=== PATIENT | female | born 1980 | race African-American/Black ===

== ENCOUNTER 2018-03-08 17:50 | Emergency (ER) | payer OTHER ==
[~2018-03-08] VITALS: Ht 170.2 cm; Wt 117.9 kg
[2018-03-08 18:07] VITALS: BP 146/103
--- NOTE | 2018-03-08 18:18 | NUR ---
PT. CAME INTO THE ED DUE TO BURRELL X 2DAYS AND NAUSEA. PT. STATES " I HAVE BEEN HAVING A BURRELL FOR 2 DAYS AND HAVE BEEN NAUSEOUS I VOMITED ONCE TODAY". PT. IS AAOX4, RR EVEN AND UNLABORED, DENIES CHEST PAIN, DENIES SOB, DENIES DIAHRRHEA AT THIS TIME. PT. DOES HAVE NAUSEA AND ALSO VOMITING ONCE TODAY. ABD ROUND AND SOFT. PT. DENIES ANY VISUAL DISTURBANCES, STATES THAT "I AM DIZZY WHEN I GET UP. ER MD NOTIFIED. WILL CONTINUE TO MONITOR.
--- NOTE | 2018-03-08 19:15 | NUR ---
Pt report given to DIDI DEE . Transfer of care at this time.
--- NOTE | 2018-03-08 19:16 | NUR ---
PT LAYING IN BED, NO NEW NEEDS AT THIS TIME.
--- NOTE | 2018-03-08 20:44 | NUR ---
PT REQUEST PAIN MEDICATION, ER MADE AWARE, TO SEE PT.
[2018-03-08] MEDS ORDERED: diphenhydrAMINE 50 MG/ML VIAL IM ONE (21:10)
[2018-03-08] MEDS ORDERED: cloNIDine 0.1 MG TAB PO ONE (21:10)
[2018-03-08] MEDS ORDERED: METOCLOPRAMIDE 10 MG/2 ML INJ VIAL IM ONE (21:10)
[2018-03-08 21:34] LABS: BASOPHILS # (AUTO) 0.1 K/uL (0.00-0.22); BASOPHILS % (AUTO) 0.7 % (0.0-2.0); EOSINOPHILS # (AUTO) 0.1 K/uL (0-0.4); EOSINOPHILS % (AUTO) 1.3 % (0.0-4.0); HEMATOCRIT 33.3 % (36-48); HEMOGLOBIN 10.9 g/dL (12.0-16.0); LYMPHOCYTES # (AUTO) 3.7 K/uL (2.5-16.5); MEAN CORPUSCULAR HEMOGLOBIN 30 pg (27-31); MEAN CORPUSCULAR HGB CONC 33 g/dL (33-37); MEAN CORPUSCULAR VOLUME 91.6 fL (80-94); MONOCYTES # (AUTO) 0.5 K/uL (0.8-1.0); MONOCYTES % (AUTO) 4.8 % (1.7-9.3); NEUTROPHILS # (AUTO) 5.3 K/uL (1.8-7.7); NEUTROPHILS % (AUTO) 55.2 % (42.2-75.2); PLATELET COUNT (AUTO) 260 K/uL (140-450); RED BLOOD CELL COUNT(AUTO) 3.64 MIL/uL (4.20-5.40); RED CELL DISTRIBUTION WIDTH 13.1 % (11.6-13.7); WHITE BLOOD COUNT (AUTO) 9.7 K/uL (4.8-10.8)
--- NOTE | 2018-03-08 21:45 | NUR ---
PT SITTING IN BED, TALKING ON PHONE.
[2018-03-08 21:52] LABS: CARBON DIOXIDE 27.4 mmol/L (21-32); CREATININE 0.8 mg/dL (0.6-1.3); POTASSIUM 3.4 mmol/L (3.5-5.1)
[2018-03-08 21:59] LABS: ALBUMIN 3.3 g/dL (3.4-5.0); TOTAL BILIRUBIN 0.2 mg/dL (0.0-1.0)
--- NOTE | 2018-03-08 22:04 | NUR ---
INGRID CHAMPAGNE AT BEDSIDE.
[2018-03-08 23:35] VITALS: BP 119/75
--- NOTE | 2018-03-08 23:35 | NUR ---
Patient discharged with v/s stable. Written and verbal after care instructions given and explained. Patient alert, oriented and verbalized understanding of instructions. Ambulatory with steady gait. All questions addressed prior to discharge. ID band removed. Patient advised to follow up with PMD. Rx of Lisinopril given. Patient educated on indication of medication including possible reaction and side effects. Opportunity to ask questions provided and answered.
== END 2018-03-08 23:35 | disposition home or self-care (01) ==
LOC: MED 17:50
DX: G44.209 Tension-type headache, unspecified, not intractable (principal); I10 Essential (primary) hypertension; F41.9 Anxiety disorder, unspecified; F17.210 Nicotine dependence, cigarettes, uncomplicated
CPT/HCPCS: 36415; 70450; 80053; 81025; 85025; 85651; 96372; 99285; J1200; J2765

== ENCOUNTER 2018-04-29 10:55 | Emergency (ER) | payer OTHER ==
[~2018-04-29] VITALS: Ht 167.6 cm; Wt 105.2 kg
[2018-04-29 11:07] VITALS: BP 142/88
--- NOTE | 2018-04-29 11:12 | NUR ---
patient to rm 11 with steady gait. gave report to Kalen TOLBERT.
--- NOTE | 2018-04-29 11:15 | NUR ---
PATIENT PRESENTS TO ED WITH COMPLAINTS OF COUGH AND COLD SYMPTOMS X 2 DAYS. DENIES N/V/D; SKIN IS PINK/WARM/DRY; AAOX4 WITH EVEN AND STEADY GAIT; LUNGS CLEAR BL; HR EVEN AND REGULAR; PT DENIES ANY FEVER, CP, SOB, OR COUGH AT THIS TIME; PATIENT STATES PAIN OF 0/10 AT THIS TIME; VSS; PATIENT POSITIONED FOR COMFORT; HOB ELEVATED; BEDRAILS UP X1; BED DOWN. ER MD MADE AWARE OF PT STATUS.
[2018-04-29 11:30] VITALS: BP 142/88
--- NOTE | 2018-04-29 11:30 | NUR ---
Patient discharged with v/s stable. Written and verbal after care instructions given and explained. Patient alert, oriented and verbalized understanding of instructions. Ambulatory with steady gait. All questions addressed prior to discharge. ID band removed. Patient advised to follow up with PMD. Rx of ERICH MICHELLE given. Patient educated on indication of medication including possible reaction and side effects. Opportunity to ask questions provided and answered.
== END 2018-04-29 11:30 | disposition home or self-care (01) ==
LOC: MED 10:55
DX: J06.9 Acute upper respiratory infection, unspecified (principal); I10 Essential (primary) hypertension; F17.210 Nicotine dependence, cigarettes, uncomplicated
CPT/HCPCS: 99283

== ENCOUNTER 2018-07-04 00:52 | Emergency (ER) | payer OTHER ==
[~2018-07-04] VITALS: Ht 170.2 cm; Wt 128.8 kg
[2018-07-04 00:55] VITALS: BP 169/108
[2018-07-04] MEDS ORDERED: KETOROLAC 30 MG/ML VIAL IM ONE (01:40)
[2018-07-04] MEDS ORDERED: DICYCLOMINE HCL LIQUID 20 MG, ALUMINUM HYD/MAG/SIMETHICONE 30 ML, LIDOCAINE VISCOUS 2% ... PO ONE ×3 (01:40)
[2018-07-04 02:47] LABS: ANION GAP 8.3 (8-16); CARBON DIOXIDE 29.5 mmol/L (21-32); CREATININE 0.8 mg/dL (0.6-1.3); POTASSIUM 3.8 mmol/L (3.5-5.1)
[2018-07-04 02:53] LABS: ALBUMIN 3.2 g/dL (3.4-5.0); TOTAL BILIRUBIN 0.1 mg/dL (0.0-1.0)
[2018-07-04 03:40] VITALS: BP 147/86
== END 2018-07-04 03:40 | disposition home or self-care (01) ==
LOC: MED 00:52
DX: R07.89 Other chest pain (principal); I10 Essential (primary) hypertension
CPT/HCPCS: 36415; 71045; 80053; 81002; 81025; 83690; 84484; 93005; 96372; 99285; J1885; Q0092

== ENCOUNTER 2018-11-14 22:10 | Emergency (ER) | payer OTHER ==
[~2018-11-14] VITALS: Ht 170.2 cm; Wt 117.9 kg
[2018-11-14 22:14] VITALS: BP 144/94
--- NOTE | 2018-11-14 22:32 | NUR ---
PT AMBULATED TO THE RESTROOM AND THEN TO BED #6, GAVE RN REPORT
--- NOTE | 2018-11-14 22:44 | NUR ---
PT BIB SELF C/O CHEST PAIN X3 HOURS. PT STATES SHARP/STABING L CHEST PAIN AT 7/10, PT DENIES RADIATING PAIN AT THIS TIME BUT REPORTS SHOOTING PAIN BEHIND L EAR WHEN CP FIRST STARTED. PT DENIES SOB AT THIS TIME BUT REPORTS SOB WHEN CP FIRST STARTED. HEART RRR, CAP REFIL <3 SEC, RADIAL PULSES EQUAL 2+. RR SYMMETRICAL, NON-LABORED, BREATH SOUNDS CLEAR THROUGHOUT. VSS. ER MD TO SEE PT. WILL CONTINUE TO MONITOR. MEDHX: ANXIETY
--- NOTE | 2018-11-14 22:45 | NUR ---
X RAY AT BEDSIDE AT THIS TIME
[2018-11-14] MEDS ORDERED: KETOROLAC 60 MG/2 ML VIAL IM ONE (23:40)
[2018-11-15 00:06] VITALS: BP 113/63
--- NOTE | 2018-11-15 00:06 | NUR ---
Patient discharged with v/s stable. Written and verbal after care instructions given and explained. Patient alert, oriented and verbalized understanding of instructions. Ambulatory with steady gait. All questions addressed prior to discharge. ID band removed. Patient advised to follow up with PMD. Rx of MOTRIN WAS given. Patient educated on indication of medication including possible reaction and side effects. Opportunity to ask questions provided and answered.
== END 2018-11-15 00:06 | disposition home or self-care (01) ==
LOC: MED 22:10
DX: R07.89 Other chest pain (principal); R06.02 Shortness of breath; R00.2 Palpitations; I10 Essential (primary) hypertension
CPT/HCPCS: 71045; 93005; 96372; 99283; J1885; Q0092

== ENCOUNTER 2019-01-06 22:51 | Emergency (ER) | payer OTHER ==
[~2019-01-06] VITALS: Ht 170.2 cm; Wt 127.0 kg
[2019-01-06 22:54] VITALS: BP 134/90
--- NOTE | 2019-01-06 22:54 | NUR ---
TO BED # 03 AMBULATORY
[2019-01-06] MEDS ORDERED: KETOROLAC 30 MG/ML VIAL IM ONE (23:05)
--- NOTE | 2019-01-06 23:13 | NUR ---
38 y/o F presented to ED with c/o SOB and chest pain. Per pt, "i cannot sleep and i feel like im gasping for air." /10 sharp and intermintent pain. bilateral lung fan clear. O2 saturation is 100% on room air. bed in lowest postion. Will continue to monitor.
[2019-01-06 23:27] LABS: BASOPHILS % (AUTO) 0.5 % (0.0-2.0); EOSINOPHILS # (AUTO) 0.1 K/uL (0-0.4); EOSINOPHILS % (AUTO) 1.4 % (0.0-4.0); HEMATOCRIT 31.6 % (36-48); HEMOGLOBIN 10.5 g/dL (12.0-16.0); LYMPHOCYTES % (AUTO) 36.3 % (20.5-51.1); MEAN CORPUSCULAR HEMOGLOBIN 30 pg (27-31); MEAN CORPUSCULAR HGB CONC 33 g/dL (33-37); MEAN CORPUSCULAR VOLUME 90.4 fL (80-94); MONOCYTES # (AUTO) 0.5 K/uL (0.8-1.0); MONOCYTES % (AUTO) 5.6 % (1.7-9.3); NEUTROPHILS # (AUTO) 4.6 K/uL (1.8-7.7); NEUTROPHILS % (AUTO) 56.2 % (42.2-75.2); PLATELET COUNT (AUTO) 277 K/uL (140-450); RED BLOOD CELL COUNT(AUTO) 3.49 MIL/uL (4.20-5.40); WHITE BLOOD COUNT (AUTO) 8.2 K/uL (4.8-10.8)
[2019-01-06 23:36] LABS: ANION GAP 7.7 (8-16); CARBON DIOXIDE 28.9 mmol/L (21-32); CREATININE 0.8 mg/dL (0.6-1.3); POTASSIUM 3.6 mmol/L (3.5-5.1)
[2019-01-06 23:41] LABS: ALBUMIN 2.9 g/dL (3.4-5.0); TOTAL BILIRUBIN 0.2 mg/dL (0.0-1.0)
--- NOTE | 2019-01-07 00:11 | NUR ---
Patient discharged with v/s stable. Written and verbal after care instructions given and explained. Patient verbalized understanding. Ambulatory with steady gait. All questions addressed prior to discharge. Advised to follow up with PMD.
== END 2019-01-07 00:11 | disposition home or self-care (01) ==
LOC: MED 22:51
DX: R07.9 Chest pain, unspecified (principal); D64.9 Anemia, unspecified; F41.9 Anxiety disorder, unspecified; I10 Essential (primary) hypertension; F17.210 Nicotine dependence, cigarettes, uncomplicated; K21.9 Gastro-esophageal reflux disease without esophagitis
CPT/HCPCS: 36415; 71045; 80053; 85025; 85379; 93005; 96372; 99284; J1885

== ENCOUNTER 2019-05-18 20:42 | Emergency (ER) | payer OTHER ==
[~2019-05-18] VITALS: Ht 170.2 cm; Wt 125.4 kg
[2019-05-18 20:46] VITALS: BP 152/113
--- NOTE | 2019-05-18 20:55 | NUR ---
TRIAGE COMPLETE. OKAY TO WAIT IN LOBBY PER ER MD.
[2019-05-18 21:44] LABS: BASOPHILS # (AUTO) 0.1 K/uL (0.00-0.22); BASOPHILS % (AUTO) 0.7 % (0.0-2.0); EOSINOPHILS # (AUTO) 0.2 K/uL (0-0.4); EOSINOPHILS % (AUTO) 2.1 % (0.0-4.0); HEMATOCRIT 32.9 % (36-48); LYMPHOCYTES # (AUTO) 2.6 K/uL (2.5-16.5); LYMPHOCYTES % (AUTO) 33.5 % (20.5-51.1); MEAN CORPUSCULAR HEMOGLOBIN 30 pg (27-31); MEAN CORPUSCULAR HGB CONC 33 g/dL (33-37); MEAN CORPUSCULAR VOLUME 90.7 fL (80-94); MONOCYTES # (AUTO) 0.3 K/uL (0.8-1.0); MONOCYTES % (AUTO) 3.6 % (1.7-9.3); NEUTROPHILS # (AUTO) 4.7 K/uL (1.8-7.7); NEUTROPHILS % (AUTO) 60.1 % (42.2-75.2); PLATELET COUNT (AUTO) 289 K/uL (140-450); RED BLOOD CELL COUNT(AUTO) 3.63 MIL/uL (4.20-5.40); RED CELL DISTRIBUTION WIDTH 13.3 % (11.6-13.7); WHITE BLOOD COUNT (AUTO) 7.9 K/uL (4.8-10.8)
[2019-05-18 21:46] LABS: ANION GAP 10.6 (8-16); CARBON DIOXIDE 29.2 mmol/L (21-32); CREATININE 0.8 mg/dL (0.6-1.3); POTASSIUM 3.8 mmol/L (3.5-5.1)
[2019-05-18 21:51] LABS: ALBUMIN 3.4 g/dL (3.4-5.0); TOTAL BILIRUBIN 0.3 mg/dL (0.0-1.0)
--- NOTE | 2019-05-18 22:20 | NUR ---
PT TO ER BED 10 , AMBULATORY
--- NOTE | 2019-05-18 22:26 | NUR ---
38 Y/O FEMALE PRESENTS TO ED, C/O ABDOMINAL ACHING PAIN 05/20. PT STATES PAIN STARTED 3 DAYS AGO. HAD 1 EPISDOE OF DIARRHEA YESTERDAY. ABLE TO TOLERATE FOOD AND LIQUID. DENIES ANY N/V. ACTIVE BS ON ALL QUADRANTS. ABD IS SOFT AND TENDER, PAIN ON PALPATION ON LOWER QUADRANT. PT VSS. ERMD AWARE. WILL CONTINUE TO MONITOR.
[2019-05-18 22:27] LABS: APPEARANCE,URINE CLEAR (CLEAR); BILIRUBIN,URINE NEGATIVE (NEGATIVE); BLOOD, URINE NEGATIVE (NEGATIVE); COLOR,URINE YELLOW (YELLOW); LEUKOCYTE ESTERASE ,URINE NEGATIVE (NEGATIVE); NITRITE, URINE NEGATIVE (NEGATIVE); PH,URINE 5.5 (5.0-9.0); UGLUCOSE NEGATIVE (NEGATIVE)
[2019-05-19] MEDS ORDERED: NACL 0.9% 1,000 ML IV ONE (00:50)
[2019-05-19] MEDS ORDERED: KETOROLAC 15 MG/ML VIAL IVP ONE (00:50)
[2019-05-19] MEDS ORDERED: ALUMINUM HYD/MAG/SIMETHICONE 30 ML, DICYCLOMINE HCL LIQUID 20 MG, LIDOCAINE VISCOUS 2% ... PO ONE ×3 (00:50)
--- NOTE | 2019-05-19 03:02 | NUR ---
PT DISCHARGED WITH PAPERWORK. RX URI. EDUCATED PT REGARDING MEDICATION AND S/E. EDUCATED PT REGARDING D/C DIAGNOSIS AND INSTRUCTIONS. PT VERBALIZED UNDERSTANDING OF TEACHING. TOLD PT TO FOLLOW UP WITH PCP AND WHEN TO RETURN TO ED. PT VSS. ALL QUESTIONS ANSWERED.
[2019-05-19 03:03] VITALS: BP 143/99
== END 2019-05-19 03:02 | disposition home or self-care (01) ==
LOC: MED 20:42
DX: R10.84 Generalized abdominal pain (principal); R19.7 Diarrhea, unspecified; R07.9 Chest pain, unspecified; I10 Essential (primary) hypertension; Z98.890 Other specified postprocedural states; Z98.51 Tubal ligation status
CPT/HCPCS: 36415; 80053; 81003; 81025; 83690; 85025; 96361; 96374; 99283; J1885; J7030

== ENCOUNTER 2019-07-29 15:31 | Emergency (ER) | payer OTHER ==
[~2019-07-29] VITALS: Ht 170.2 cm; Wt 125.2 kg
[2019-07-29 15:42] VITALS: BP 146/111
--- NOTE | 2019-07-29 16:02 | NUR ---
Patient ambulated to bed 1 with family. RN evaluating patient at bedside.
--- NOTE | 2019-07-29 16:13 | NUR ---
PHYSICIANS RETAIL MANAGEMENT KEYHOLDER AT BEDSIDE.
--- NOTE | 2019-07-29 16:49 | NUR ---
PT PRESENTS TO THE ED WITH C/O N/V/D X 1 DAY. BOWEL SOUNDS ACTIVE IN ALL QUADRANTS. PT REPORTS LLQ ABD PAIN X 1 DAY. PT DENIES CP AND SOB AT THIS TIME. PT REPORTS A THROBBING HEADACHE AND RATES PAIN 9/10 AT THIS TIME. SKIN IS PINK, WARM, AND DRY. PT PRESENTS WITH A CLEAR SPEECH AND IS CONVERSING APPROPRIATELY. PT REPORTS NO CHANGE IN DIET. SON AT BEDSIDE. BP 133/91. PT POSITIONED FOR COMFORT. HOB ELEVATED, LIGHTS DIMMED. PHYSICIAN BILLET INSPECTOR TO SEE PT. MEREDITH HX: ANXIETY RX: DENIES
[2019-07-29] MEDS: ONDANSETRON 4 MG/2 ML VIAL IVP ONE (17:01)
[2019-07-29] MEDS: NACL 0.9% 1,000 ML IV ONE (17:01)
[2019-07-29 17:24] LABS: BASOPHILS % (AUTO) 0.4 % (0.0-2.0); EOSINOPHILS # (AUTO) 0.1 K/uL (0-0.4); EOSINOPHILS % (AUTO) 1.1 % (0.0-4.0); HEMATOCRIT 34.3 % (36-48); HEMOGLOBIN 11.2 g/dL (12.0-16.0); LYMPHOCYTES # (AUTO) 1.9 K/uL (2.5-16.5); LYMPHOCYTES % (AUTO) 26.8 % (20.5-51.1); MEAN CORPUSCULAR HEMOGLOBIN 30 pg (27-31); MEAN CORPUSCULAR HGB CONC 33 g/dL (33-37); MEAN CORPUSCULAR VOLUME 91.8 fL (80-94); MONOCYTES # (AUTO) 0.3 K/uL (0.8-1.0); MONOCYTES % (AUTO) 4.3 % (1.7-9.3); NEUTROPHILS # (AUTO) 4.8 K/uL (1.8-7.7); NEUTROPHILS % (AUTO) 67.4 % (42.2-75.2); PLATELET COUNT (AUTO) 252 K/uL (140-450); RED BLOOD CELL COUNT(AUTO) 3.74 MIL/uL (4.20-5.40); RED CELL DISTRIBUTION WIDTH 13.6 % (11.6-13.7); WHITE BLOOD COUNT (AUTO) 7.1 K/uL (4.8-10.8)
[2019-07-29] MEDS: KETOROLAC 30 MG/ML VIAL IVP ONE (17:26)
[2019-07-29 17:50] LABS: ANION GAP 13.4 (8-16); CARBON DIOXIDE 25.3 mmol/L (21-32); CREATININE 0.7 mg/dL (0.6-1.3); POTASSIUM 3.7 mmol/L (3.5-5.1)
[2019-07-29 18:03] LABS: ALBUMIN 3.2 g/dL (3.4-5.0); TOTAL BILIRUBIN 0.3 mg/dL (0.0-1.0)
--- NOTE | 2019-07-29 18:09 | NUR ---
Patient discharged with v/s stable. Written and verbal after care instructions given and explained. Patient alert, oriented and verbalized understanding of instructions. Ambulatory with steady gait. All questions addressed prior to discharge. ID band removed. Patient advised to follow up with PMD. Rx of IBUPROFEN AND ZOFRAN given. Patient educated on indication of medication including possible reaction and side effects. Opportunity to ask questions provided and answered.
[2019-07-29 18:10] VITALS: BP 133/91
[2019-07-29 18:15] LABS: APPEARANCE,URINE CLEAR (CLEAR); BILIRUBIN,URINE NEGATIVE (NEGATIVE); BLOOD, URINE NEGATIVE (NEGATIVE); COLOR,URINE YELLOW (YELLOW); LEUKOCYTE ESTERASE ,URINE NEGATIVE (NEGATIVE); NITRITE, URINE NEGATIVE (NEGATIVE); UGLUCOSE NEGATIVE (NEGATIVE)
== END 2019-07-29 18:09 | disposition home or self-care (01) ==
LOC: MED 15:31
DX: A08.4 Viral intestinal infection, unspecified (principal); R11.2 Nausea with vomiting, unspecified; I10 Essential (primary) hypertension; F17.210 Nicotine dependence, cigarettes, uncomplicated; Z98.890 Other specified postprocedural states; Z71.6 Tobacco abuse counseling
CPT/HCPCS: 36415; 80053; 81003; 81025; 85025; 96361; 96374; 96375; 99283; J1885; J2405; J7030

== ENCOUNTER 2019-10-18 18:42 | Emergency (ER) | payer OTHER ==
[~2019-10-18] VITALS: Ht 170.2 cm; Wt 108.9 kg
[2019-10-18 18:53] VITALS: BP 155/80
--- NOTE | 2019-10-18 19:14 | NUR ---
38 yo F C/O SORE THROAT, NON-PRODUCTIVE COUGH AND RUNNY NOSE X 4 DAYS. PT ALSO COMPLAINS OF 8/10 THROBBING H/A. ADVIL TAKEN AT 2PM, WHICH PROVIDED NO RELIEF. DENIES N/V/D. VSS. BREATH SOUNDS CLEAR ON ALL LUNG LEIGH. PT POSITIONED IN BED COMFORTABLY. ER MD MADE AWARE OF PT STATUS. NKA PMH: DM, ANXIETY MEDS: LISINOPRIL
--- NOTE | 2019-10-18 19:18 | NUR ---
Dr. Garcia examining patient.
[2019-10-18 21:05] VITALS: BP 155/80
--- NOTE | 2019-10-18 21:06 | NUR ---
Patient discharged with v/s stable. Written and verbal after care instructions given and explained. Patient alert, oriented and verbalized understanding of instructions. Ambulatory with steady gait. All questions addressed prior to discharge. ID band removed. Patient advised to follow up with PMD. Rx of GUAIATUSSIN, FLONASE given. Patient educated on indication of medication including possible reaction and side effects. Opportunity to ask questions provided and answered.
== END 2019-10-18 21:06 | disposition home or self-care (01) ==
LOC: MED 18:42
DX: J20.9 Acute bronchitis, unspecified (principal); F41.9 Anxiety disorder, unspecified; F17.210 Nicotine dependence, cigarettes, uncomplicated; I10 Essential (primary) hypertension; Z98.890 Other specified postprocedural states; Z71.6 Tobacco abuse counseling
CPT/HCPCS: 87804; 99283

== ENCOUNTER 2019-11-25 16:47 | Emergency (ER) | payer OTHER ==
[~2019-11-25] VITALS: Ht 170.2 cm; Wt 125.2 kg
--- NOTE | 2019-11-25 17:05 | NUR ---
Pt ambulated to lobby. Awaiting bed availability.
[2019-11-25 17:07] VITALS: BP 175/105
--- NOTE | 2019-11-25 17:20 | NUR ---
CALLED NAME IN LOBBY--NO ANSWER AT THIS TIME.
--- NOTE | 2019-11-25 17:25 | NUR ---
AMB TO BED 07 WITH STEADY GAIT
--- NOTE | 2019-11-25 17:31 | NUR ---
39/F C/O c/o aching pain in bilateral arms. Denies trauma or exertion. Pain level 7/10. Denies cold symptoms. Pt BP 175/105, noncompliant with meds. "my ears feel hot and my nose is breathing in hot air". Denies back pain, dizziness, blurry vision. States BURRELL x 2 days. Took Advil yesterday which relieved the BURRELL. HX- HTN, anxiety
--- NOTE | 2019-11-25 17:34 | NUR ---
Denies SOB, CP.
--- NOTE | 2019-11-25 18:24 | NUR ---
flu swab collected by Tegan TOLBERT
--- NOTE | 2019-11-25 19:14 | NUR ---
REPORT TO SHELLY TOLBERT. TRANSFER OF CARE AT THIS TIME.
--- NOTE | 2019-11-25 19:14 | NUR ---
RECIEVED REPORT FROM DIDI FRANCO AND ASSUMED CARE.
--- NOTE | 2019-11-25 19:21 | NUR ---
PA ADOLFO WITH PT
[2019-11-25 19:44] VITALS: BP 132/85
== END 2019-11-25 19:45 | disposition home or self-care (01) ==
LOC: MED 16:47
DX: H92.09 Otalgia, unspecified ear (principal); I10 Essential (primary) hypertension; Z91.14 Patient's other noncompliance with medication regimen
CPT/HCPCS: 87804; 99283

== ENCOUNTER 2019-12-21 00:07 | Emergency (ER) | payer OTHER ==
[~2019-12-21] VITALS: Ht 170.2 cm; Wt 126.1 kg
[2019-12-21 00:22] VITALS: BP 158/90
--- NOTE | 2019-12-21 00:25 | NUR ---
PT AMBULATED TO BED 6 WITH STEADY GAIT.
[2019-12-21] MEDS ORDERED: ALBUTEROL HFA MDI 90 MCG/ACTUATION 8 GM INH ONE (00:45)
--- NOTE | 2019-12-21 00:49 | NUR ---
XRAY AT BEDSIDE.
--- NOTE | 2019-12-21 01:10 | NUR ---
COVERING FOR PRIMARY RN -- RECEIVED A 39/F FROM TRIAGE FOR C/O SOB OVER THE LAST 3 DAYS. DENIES COUGH. PT REPORTS HISTORY OF SMOKING X 20 YEARS. NO APPARENT DISTRESS NOTED. NEGATIVE COVID SCREENING.
--- NOTE | 2019-12-21 01:25 | NUR ---
ERMD AT BEDSIDE
--- NOTE | 2019-12-21 01:30 | NUR ---
Patient discharged with v/s stable. Written and verbal after care instructions given and explained. Patient alert, oriented and verbalized understanding of instructions. Ambulatory with steady gait. All questions addressed prior to discharge. ID band removed. Patient advised to follow up with PMD. Rx of VENTOLIN given. Patient educated on indication of medication including possible reaction and side effects. Opportunity to ask questions provided and answered.
== END 2019-12-21 01:30 | disposition home or self-care (01) ==
LOC: MED 00:07
DX: J40 Bronchitis, not specified as acute or chronic (principal); I10 Essential (primary) hypertension
CPT/HCPCS: 71045; 99283; Q0092

== ENCOUNTER 2020-01-02 00:30 | Emergency (ER) | payer OTHER ==
[~2020-01-02] VITALS: Ht 170.2 cm; Wt 121.1 kg
[2020-01-02 00:38] VITALS: BP 124/81
--- NOTE | 2020-01-02 00:44 | NUR ---
PT AMBULATED TO ER BED 4
--- NOTE | 2020-01-02 00:46 | NUR ---
ERMD BEDSIDE EVALUATING PT
[2020-01-02] MEDS ORDERED: KETOROLAC 60 MG/2 ML VIAL IM ONE (00:50)
--- NOTE | 2020-01-02 00:51 | NUR ---
39 Y/O F PRESENTS TO ED C/O LT ARM NUMBNESS AND TINGLING X 2 HOURS AGO. PT STATES THAT SHE WAS SLEEPING PRIOR TO THE EVENT. BILATERAL RADIAL PULSES STRONG. CAP REFILL <3 SECONDS. PT DENIES ANY INJURY. PMH: ANXIETY, HTN NKA
--- NOTE | 2020-01-02 00:54 | NUR ---
COVERING PRIMARY RN FOR LUNCH RELIEF. MEDICATED ORDERED FOR PAIN. WILL REASSESS.
[2020-01-02 01:06] VITALS: BP 124/81
== END 2020-01-02 01:05 | disposition home or self-care (01) ==
LOC: MED 00:30
DX: M25.512 Pain in left shoulder (principal); I10 Essential (primary) hypertension
CPT/HCPCS: 96372; 99283; J1885

== ENCOUNTER 2020-04-16 19:16 | Emergency (ER) | payer OTHER ==
[~2020-04-16] VITALS: Ht 170.2 cm; Wt 122.5 kg
[2020-04-16 19:23] VITALS: BP 155/95
--- NOTE | 2020-04-16 19:27 | NUR ---
ambulated to bed 11 with steady gait.
[2020-04-16] MEDS ORDERED: LORazepam 1 MG TAB PO ONE (19:40)
--- NOTE | 2020-04-16 19:40 | NUR ---
39 Y/O F C/C CHEST PAIN, STERNUM AREA, NON RADIATING, 9/10 PAIN, PRESSURE SENSATION, PER PATIENT MOVING RIGHT SHOULDER EXACERBATES, NOTHING ALLEVIATES. PER PT X1 DAY. NKA. HX ANXIETY,HTN. RX LISINOPRIL. SIDE RAIL X1.
--- NOTE | 2020-04-16 19:50 | NUR ---
REPORT GIVEN TO MARIO TOLBERT FOR CONTINUITY OF CARE
--- NOTE | 2020-04-16 19:50 | NUR ---
LAB AT BEDSIDE
--- NOTE | 2020-04-16 19:53 | NUR ---
REPORT RECIEVED FROM REBEKAH TOLBERT. TRANSFER OF CARE AT THIS TIME.
--- NOTE | 2020-04-16 19:55 | NUR ---
PT PLACED ON SCIENTIFIC GLASS BLOWER. BED LOCKED AND IN LOWEST POSITION. EQUAL CHEST RISE AND FALL. ALL PT NEEDS MET AT THIS TIME.
[2020-04-16 20:01] LABS: BASOPHILS # (AUTO) 0.1 K/uL (0.00-0.22); BASOPHILS % (AUTO) 0.8 % (0.0-2.0); EOSINOPHILS # (AUTO) 0.2 K/uL (0-0.4); EOSINOPHILS % (AUTO) 2.2 % (0.0-4.0); HEMATOCRIT 33.8 % (36-48); LYMPHOCYTES # (AUTO) 3.5 K/uL (2.5-16.5); LYMPHOCYTES % (AUTO) 39.5 % (20.5-51.1); MEAN CORPUSCULAR HEMOGLOBIN 30 pg (27-31); MEAN CORPUSCULAR HGB CONC 32 g/dL (33-37); MEAN CORPUSCULAR VOLUME 93.2 fL (80-94); MONOCYTES # (AUTO) 0.4 K/uL (0.8-1.0); MONOCYTES % (AUTO) 4.9 % (1.7-9.3); NEUTROPHILS # (AUTO) 4.6 K/uL (1.8-7.7); NEUTROPHILS % (AUTO) 52.6 % (42.2-75.2); PLATELET COUNT (AUTO) 301 K/uL (140-450); RED BLOOD CELL COUNT(AUTO) 3.63 MIL/uL (4.20-5.40); RED CELL DISTRIBUTION WIDTH 12.9 % (11.6-13.7); WHITE BLOOD COUNT (AUTO) 8.8 K/uL (4.8-10.8)
--- NOTE | 2020-04-16 20:09 | NUR ---
RAD AT BEDSIDE
[2020-04-16 20:15] LABS: ALBUMIN 3.3 g/dL (3.4-5.0); ANION GAP 9.2 (8-16); CARBON DIOXIDE 32.2 mmol/L (21-32); CREATININE 0.8 mg/dL (0.6-1.3); POTASSIUM 3.4 mmol/L (3.5-5.1); TOTAL BILIRUBIN 0.2 mg/dL (0.0-1.0)
[2020-04-16 20:17] LABS: BARBITURATE, URINE NEGATIVE ng/ml (NEG <=200); BENZODIAZEPINE, URINE NEGATIVE ng/mL (NEG <=200); CANNABINOID, URINE NEGATIVE ng/mL (NEG <=50); COCAINE, URINE NEGATIVE ng/mL (NEG <=300); OPIATE, URINE NEGATIVE ng/mL (NEG <=2000); PHENCYCLIDINE SCREEN,URINE NEGATIVE ng/mL (NEG <=25)
[2020-04-16 20:27] LABS: CREATINE KINASE MB 0.6 ng/mL (0-3.6)
[2020-04-16] MEDS ORDERED: KETOROLAC 30 MG/ML VIAL IM ONE (21:00)
--- NOTE | 2020-04-16 21:59 | NUR ---
LAB AT BEDSIDE
--- NOTE | 2020-04-16 22:07 | NUR ---
PT RESTING IN BED. PT STATES HER 9/10 PAIN IS STILL UNRELIEVED. DENIES WANTING ANY MORE PAIN MEDICATION AT THIS TIME. SAFETY MEASURES AND DELIVERY DEPARTMENT SUPERVISOR IN PLACE.
--- NOTE | 2020-04-16 22:39 | NUR ---
REPEAT 12 LEAD EKG PERFORMED AT BEDSIDE
[2020-04-16 22:50] VITALS: BP 132/84
== END 2020-04-16 22:50 | disposition home or self-care (01) ==
LOC: MED 19:16
DX: R07.9 Chest pain, unspecified (principal); I10 Essential (primary) hypertension; K21.9 Gastro-esophageal reflux disease without esophagitis; Z98.890 Other specified postprocedural states
CPT/HCPCS: 36415; 71045; 80053; 80305; 82550; 82553; 84484; 85025; 93005; 96372; 99285; J1885

== ENCOUNTER 2020-09-09 19:30 | Emergency (ER) | payer OTHER ==
[~2020-09-09] VITALS: Ht 170.2 cm; Wt 115.2 kg
[2020-09-09 19:50] VITALS: BP 145/102
--- NOTE | 2020-09-09 21:42 | NUR ---
PATIENT READY FOR DISCHARGE. NO NURSING INTERVENTION REQUIRED.
[2020-09-09 21:45] VITALS: BP 138/87
== END 2020-09-09 21:52 | disposition home or self-care (01) ==
LOC: MED 19:30
DX: R06.02 Shortness of breath (principal); R00.0 Tachycardia, unspecified; K21.9 Gastro-esophageal reflux disease without esophagitis; I10 Essential (primary) hypertension
CPT/HCPCS: 71045; 99283

== ENCOUNTER 2020-10-21 16:50 | Emergency (ER) | payer OTHER ==
[~2020-10-21] VITALS: Ht 170.2 cm; Wt 127.0 kg
[2020-10-21 16:59] VITALS: BP 132/70
--- NOTE | 2020-10-21 17:08 | NUR ---
PATIENT AMBULATED TO BED 1.
--- NOTE | 2020-10-21 17:23 | NUR ---
@[id number] Received care of 39 y/o female pt coming from home c/o pressure like chest pain radiating to left arm & left upper back, numbness on left arm x 2 days. Pt has Hx of Htn, DM, GERD, Anxiety. Has NKA. Pt hooked to cardiac specialist, VS. csr technician notified for EKG. Awaiting bedside assessment by ER MD.
[2020-10-21 17:43] VITALS: BP 134/79
[2020-10-21] MEDS ORDERED: DICYCLOMINE HCL LIQUID 20 MG, ALUMINUM HYD/MAG/SIMETHICONE 30 ML, LIDOCAINE VISCOUS 2% ... PO ONE ×3 (17:50)
[2020-10-21] MEDS ORDERED: DICYCLOMINE HCL LIQUID 10 MG/5 ML UDC ONE (17:58)
[2020-10-21] MEDS ORDERED: ALUMINUM HYD/MAG/SIMETHICONE 30 ML UDC ONE (17:58)
[2020-10-21] MEDS ORDERED: LIDOCAINE VISCOUS 2% 20 ML UDC ONE (17:58)
[2020-10-21 18:30] LABS: BASOPHILS % (AUTO) 0.5 % (0.0-2.0); EOSINOPHILS # (AUTO) 0.1 K/uL (0-0.4); EOSINOPHILS % (AUTO) 1.4 % (0.0-4.0); HEMATOCRIT 31.7 % (36-48); HEMOGLOBIN 10.6 g/dL (12.0-16.0); LYMPHOCYTES # (AUTO) 2.8 K/uL (2.5-16.5); LYMPHOCYTES % (AUTO) 37.4 % (20.5-51.1); MEAN CORPUSCULAR HEMOGLOBIN 30 pg (27-31); MEAN CORPUSCULAR HGB CONC 33 g/dL (33-37); MONOCYTES # (AUTO) 0.5 K/uL (0.8-1.0); MONOCYTES % (AUTO) 6.5 % (1.7-9.3); NEUTROPHILS # (AUTO) 4.1 K/uL (1.8-7.7); NEUTROPHILS % (AUTO) 54.2 % (42.2-75.2); PLATELET COUNT (AUTO) 269 K/uL (140-450); RED BLOOD CELL COUNT(AUTO) 3.48 MIL/uL (4.20-5.40); WHITE BLOOD COUNT (AUTO) 7.5 K/uL (4.8-10.8)
[2020-10-21 18:50] LABS: ALBUMIN 3.2 g/dL (3.4-5.0); ANION GAP 9.7 (8-16); CARBON DIOXIDE 27.1 mmol/L (21-32); CREATININE 0.7 mg/dL (0.6-1.3); POTASSIUM 3.8 mmol/L (3.5-5.1); TOTAL BILIRUBIN 0.2 mg/dL (0.0-1.0)
--- NOTE | 2020-10-21 19:07 | NUR ---
hand off report given to Dayana Carrasquillo for continuation of nursing care
== END 2020-10-21 22:12 | disposition home or self-care (01) ==
LOC: MED 16:50
DX: R07.9 Chest pain, unspecified (principal); K21.9 Gastro-esophageal reflux disease without esophagitis; E11.9 Type 2 diabetes mellitus without complications; I10 Essential (primary) hypertension; F41.9 Anxiety disorder, unspecified; F17.210 Nicotine dependence, cigarettes, uncomplicated; Z71.6 Tobacco abuse counseling; Z79.899 Other long term (current) drug therapy
CPT/HCPCS: 36415; 71045; 80053; 81002; 81025; 83690; 83880; 84484; 85025; 85379; 93005; 99285

== ENCOUNTER 2021-02-07 14:55 | Emergency (ER) | payer OTHER ==
[~2021-02-07] VITALS: Ht 170.2 cm; Wt 129.3 kg
[2021-02-07 15:11] VITALS: BP 160/106
--- NOTE | 2021-02-07 15:28 | NUR ---
40 Y/O F BIB SELF FROM HOME, PATIENT PRESENTS TO ED WITH R FOOT PAIN SINCE YESTERDAY THAT IS NOW RADIATING UP R LOWER EXTREMITY. PT STATES SHE HAS A BUMP ON HER FOOT THAT HAS BEEN STARTING TO MAKE HER LEG FEEL NUMB. UPON INSEPCTION, PT HAS VISIBLE SWELLING ON R FOOT, PT STILL HAS SENSATION AND CAP REFILL <3. DENIES N/V/D; SKIN IS PINK/WARM/DRY; AAOX4 WITH EVEN AND STEADY GAIT; LUNGS CLEAR BL; HR EVEN AND REGULAR; PT DENIES ANY FEVER, CP, SOB, OR COUGH AT THIS TIME; PATIENT STATES PAIN OF 8/10 AT THIS TIME; VSS; PATIENT POSITIONED FOR COMFORT; HOB ELEVATED; BEDRAILS UP X2; BED DOWN. ER MD MADE AWARE OF PT STATUS. PMH: HTN NKA
[2021-02-07] MEDS ORDERED: IBUPROFEN 600 MG TAB PO ONE (15:45)
[2021-02-07] MEDS ORDERED: IBUP-2213 PO (16:48)
--- NOTE | 2021-02-07 16:55 | NUR ---
PT RIGHT FOOT WRAPED WITH 4" LIS WRAP
[2021-02-07 17:03] VITALS: BP 158/99
== END 2021-02-07 17:03 | disposition home or self-care (01) ==
LOC: MED 14:55
DX: S90.31XA Contusion of right foot, initial encounter (principal); I10 Essential (primary) hypertension; X58.XXXA Exposure to other specified factors, initial encounter; Y93.89 Activity, other specified; Y92.89 Other specified places as the place of occurrence of the external cause; Y99.8 Other external cause status
CPT/HCPCS: 73630; 99283

== ENCOUNTER 2021-05-09 22:34 | Emergency (ER) | payer OTHER ==
[~2021-05-09] VITALS: Ht 172.7 cm; Wt 126.1 kg
[~2021-05-09 22:34] MED LIST: IBUP-2213 PO
[2021-05-09 22:54] VITALS: BP 160/102
[2021-05-10] MEDS ORDERED: PROCHLORPERAZINE 10 MG/2 ML VIAL IM ONE (00:55)
[2021-05-10] MEDS ORDERED: KETOROLAC 60 MG/2 ML VIAL IM ONE (00:55)
--- NOTE | 2021-05-10 01:01 | NUR ---
PT AMBULATED TO BED 05
[2021-05-10 01:13] LABS: BASOPHILS % (AUTO) 0.3 % (0.0-2.0); EOSINOPHILS # (AUTO) 0.1 K/uL (0-0.4); EOSINOPHILS % (AUTO) 1.7 % (0.0-4.0); HEMATOCRIT 35.3 % (36-48); HEMOGLOBIN 11.6 g/dL (12.0-16.0); LYMPHOCYTES # (AUTO) 2.9 K/uL (2.5-16.5); LYMPHOCYTES % (AUTO) 34.3 % (20.5-51.1); MEAN CORPUSCULAR HEMOGLOBIN 31 pg (27-31); MEAN CORPUSCULAR HGB CONC 33 g/dL (33-37); MEAN CORPUSCULAR VOLUME 93.7 fL (80-94); MONOCYTES # (AUTO) 0.4 K/uL (0.8-1.0); MONOCYTES % (AUTO) 4.9 % (1.7-9.3); NEUTROPHILS # (AUTO) 4.9 K/uL (1.8-7.7); NEUTROPHILS % (AUTO) 58.8 % (42.2-75.2); PLATELET COUNT (AUTO) 300 K/uL (140-450); RED BLOOD CELL COUNT(AUTO) 3.76 MIL/uL (4.20-5.40); RED CELL DISTRIBUTION WIDTH 13.6 % (11.6-13.7); WHITE BLOOD COUNT (AUTO) 8.4 K/uL (4.8-10.8)
--- NOTE | 2021-05-10 01:15 | NUR ---
40 YO/F BIBS W C/O TEMPORAL/FRONTAL HEADACHE 06/19 NON-RADIATING X1 WEEK WORSENING TODAY S/P RECEIVING 1ST DOSE OF COVID VACCINE. PATIENT REPORTS TAKING TYLENOL AND MOTRIN YESTERDAY W/O RELIEF OF PAIN. PATIENT DENIES N/V/D, BLURRY VISION, DIZZYNESS. PATIENT LAYING IN BED W BLANKET, HOB ELEVATED, BED LOCKED IN LOWEST POSITION, X1 SIDERAIL UP. BREATHING EVEN AND UNLABORED, NAD NOTED, WILL CONTINUE TO MONITOR. PMH:HTN, ANXIETY NKA
--- NOTE | 2021-05-10 01:17 | NUR ---
EDUCATED PATIENT ON CONTRAINDICATIONS OF TORADOL MEDICATION DURING . PATIENT DENIES AT THIS TIME.
[2021-05-10 01:23] LABS: ANION GAP 9.4 (8-16); CARBON DIOXIDE 31.4 mmol/L (21-32); CREATININE 0.9 mg/dL (0.6-1.3); POTASSIUM 3.8 mmol/L (3.5-5.1)
--- NOTE | 2021-05-10 01:34 | NUR ---
PT UNABLE TO PROVIDE URINE SPECIMEN AT THIS TIME.
--- NOTE | 2021-05-10 01:50 | NUR ---
PT RETURNED FROM CT VIA W/C
--- NOTE | 2021-05-10 01:53 | NUR ---
PER DR. GUILLORY URINE NOT NEEDED AT THIS TIME.
--- NOTE | 2021-05-10 02:50 | NUR ---
PATIENT REPORTS PAIN IMPROVEMENT. PATIENT DENIES DIZZYNESS, OR DROWSINESS. PATIENT REPORTS SHE FEELS FINE TO DRIVE HOME AT THIS TIME.
[2021-05-10 02:53] VITALS: BP 132/72
== END 2021-05-10 02:53 | disposition home or self-care (01) ==
LOC: MED 22:34
DX: G43.909 Migraine, unspecified, not intractable, without status migrainosus (principal); R00.2 Palpitations; I10 Essential (primary) hypertension
CPT/HCPCS: 36415; 70450; 71045; 80048; 84484; 85025; 93005; 96372; 99285; J0780; J1885; Q0163

== ENCOUNTER 2021-06-19 02:05 | Observation (INO) | payer OTHER ==
[~2021-06-19] VITALS: Ht 170.2 cm; Wt 129.0 kg
[2021-06-19 02:09] VITALS: BP 149/106
[2021-06-19] MEDS ORDERED: MORPHINE SULFATE 4 MG/ML SYR IVP ONE (02:30)
[2021-06-19] MEDS ORDERED: ENOXAPARIN 120 MG/0.8 ML SYR SUBQ ONE (02:30)
[2021-06-19] MEDS ORDERED: ASPIRIN 325 MG TAB PO ONE (02:30)
[2021-06-19] MEDS ORDERED: ENALAPRILAT 2.5 MG/2 ML VIAL IVP ONE (02:30)
[2021-06-19] MEDS ORDERED: NITROGLYCERIN 2% 1 GM PKT TP ONE (02:30)
[2021-06-19 02:51] LABS: BASOPHILS # (AUTO) 0.1 K/uL (0.00-0.22); BASOPHILS % (AUTO) 0.9 % (0.0-2.0); EOSINOPHILS # (AUTO) 0.1 K/uL (0-0.4); EOSINOPHILS % (AUTO) 1.9 % (0.0-4.0); HEMATOCRIT 33.5 % (36-48); HEMOGLOBIN 11.2 g/dL (12.0-16.0); LYMPHOCYTES # (AUTO) 2.5 K/uL (2.5-16.5); LYMPHOCYTES % (AUTO) 36.1 % (20.5-51.1); MEAN CORPUSCULAR HEMOGLOBIN 31 pg (27-31); MEAN CORPUSCULAR HGB CONC 34 g/dL (33-37); MEAN CORPUSCULAR VOLUME 92.5 fL (80-94); MONOCYTES # (AUTO) 0.4 K/uL (0.8-1.0); MONOCYTES % (AUTO) 6.1 % (1.7-9.3); NEUTROPHILS # (AUTO) 3.8 K/uL (1.8-7.7); PLATELET COUNT (AUTO) 274 K/uL (140-450); RED BLOOD CELL COUNT(AUTO) 3.63 MIL/uL (4.20-5.40); RED CELL DISTRIBUTION WIDTH 13.6 % (11.6-13.7)
[2021-06-19 03:03] LABS: ALBUMIN 3.4 g/dL (3.4-5.0); ANION GAP 12.7 (8-16); CARBON DIOXIDE 29.1 mmol/L (21-32); CREATININE 0.8 mg/dL (0.6-1.3); POTASSIUM 3.8 mmol/L (3.5-5.1); TOTAL BILIRUBIN 0.2 mg/dL (0.0-1.0)
[2021-06-19 03:06] LABS: CHOL/HDL RATIO 5.5 (1-4.5)
[2021-06-19 03:13] LABS: CREATINE KINASE MB 0.8 ng/mL (0-3.6)
[2021-06-19] MEDS ORDERED: SIMVASTATIN 40 MG TAB PO ONE (04:55)
[2021-06-19] MEDS ORDERED: LISI5TAB18 PO (05:32)
[2021-06-19] MEDS ORDERED: OMEP20EC11 PO (05:32)
[2021-06-19] MEDS ORDERED: MAG SULF 2000 MG/WATER PREMIX 50 ML IV PRN (07:50)
[2021-06-19] MEDS ORDERED: MORPHINE SULFATE 4 MG/ML SYR IVP PRN (07:50)
[2021-06-19] MEDS ORDERED: POTASSIUM CHLORIDE 10 MEQ TABER PO PRN (07:50)
[2021-06-19] MEDS ORDERED: HYDROcodone/APAP 5/325 MG 1 TAB TAB PO PRN (07:50)
[2021-06-19] MEDS ORDERED: ACETAMINOPHEN 325 MG TAB PO PRN (07:50)
[2021-06-19] MEDS ORDERED: ONDANSETRON 4 MG/2 ML VIAL IVP PRN (07:50)
[2021-06-19] MEDS ORDERED: MAGNESIUM OXIDE 400 MG TAB PO PRN (07:50)
[2021-06-19] MEDS ORDERED: KCL 20 MEQ/WATER INJ PREMIX 200 ML IV PRN (07:50)
[2021-06-19] MEDS: DOCUSATE SODIUM 100 MG GELCAP PO SCH (09:54)
[2021-06-19] MEDS ORDERED: KETOROLAC 15 MG/ML VIAL IVP PRN (13:20)
[2021-06-19 22:06] VITALS: BP 120/68
[2021-06-20] VITALS: BP 115/68
[2021-06-20 04:00] VITALS: BP 113/68
[2021-06-20 05:58] LABS: BASOPHILS % (AUTO) 0.3 % (0.0-2.0); EOSINOPHILS # (AUTO) 0.1 K/uL (0-0.4); HEMATOCRIT 31.8 % (36-48); HEMOGLOBIN 10.6 g/dL (12.0-16.0); LYMPHOCYTES % (AUTO) 44.2 % (20.5-51.1); MEAN CORPUSCULAR HEMOGLOBIN 31 pg (27-31); MEAN CORPUSCULAR HGB CONC 33 g/dL (33-37); MEAN CORPUSCULAR VOLUME 93.3 fL (80-94); MONOCYTES # (AUTO) 0.4 K/uL (0.8-1.0); MONOCYTES % (AUTO) 5.8 % (1.7-9.3); NEUTROPHILS # (AUTO) 3.2 K/uL (1.8-7.7); NEUTROPHILS % (AUTO) 47.7 % (42.2-75.2); PLATELET COUNT (AUTO) 244 K/uL (140-450); RED BLOOD CELL COUNT(AUTO) 3.41 MIL/uL (4.20-5.40); RED CELL DISTRIBUTION WIDTH 13.4 % (11.6-13.7); WHITE BLOOD COUNT (AUTO) 6.8 K/uL (4.8-10.8)
[2021-06-20 06:15] LABS: PROTHROMBIN TIME 9.9 secs (10.8-13.4)
[2021-06-20 08:00] VITALS: BP 105/70
[2021-06-20] MEDS: DOCUSATE SODIUM 100 MG GELCAP PO SCH (08:50)
[2021-06-20 08:53] LABS: ANION GAP 13.4 (8-16); CARBON DIOXIDE 24.7 mmol/L (21-32); CREATININE 0.8 mg/dL (0.6-1.3); POTASSIUM 4.1 mmol/L (3.5-5.1); TOTAL BILIRUBIN 0.3 mg/dL (0.0-1.0)
[2021-06-20 12:00] VITALS: BP 131/76
[2021-06-20] MEDS ORDERED: IBUP-2213 PO (12:38)
== END 2021-06-20 13:55 | disposition home or self-care (01) ==
LOC: MED 02:05 → INTOOBSV 07:57 → UNDOADMIN 07:57 → MTU 07:57
PROVIDERS: ADMIT Internal Medicine; ATTEND Internal Medicine
DX: R07.89 Other chest pain (principal); M94.0 Chondrocostal junction syndrome [Tietze]; I20.9 Angina pectoris, unspecified; R94.31 Abnormal electrocardiogram [ECG] [EKG]; I10 Essential (primary) hypertension; D64.9 Anemia, unspecified; K21.9 Gastro-esophageal reflux disease without esophagitis; E66.01 Morbid (severe) obesity due to excess calories; E78.5 Hyperlipidemia, unspecified; F17.200 Nicotine dependence, unspecified, uncomplicated; F41.9 Anxiety disorder, unspecified; Z79.899 Other long term (current) drug therapy; Z68.41 Body mass index [BMI] 40.0-44.9, adult
CPT/HCPCS: 36415; 71045; 80053; 82550; 82553; 83036; 83735; 83880; 84484; 85025; 85379; 85610; 87081; 93005; 96372; 96374; 96375; 96376; 99291; G0378; J1644; J1650; J1885; J2270; J2405; J3490; Q0092

== ENCOUNTER 2021-06-22 08:01 | Emergency (ER) | payer OTHER ==
[~2021-06-22] VITALS: Ht 170.2 cm; Wt 126.6 kg
[~2021-06-22 08:01] MED LIST changes: +LISI5TAB18 PO; +OMEP20EC11 PO
[2021-06-22 08:03] VITALS: BP 126/88
--- NOTE | 2021-06-22 08:08 | NUR ---
pt ambulated to bed 6, gait steady
--- NOTE | 2021-06-22 08:18 | NUR ---
40/F BIB SELF WITH C/O CHEST PAIN SINCE LAST NIGHT. STATES SHE WAS ADMITTED HERE ON SUNDAY FOR SAME SYMPTOMS BUT PAIN HAS SINCE RETURNED SINCE BEING D/C. DENIES FEVER, SOB, FEVER OR CHILLS. PT STATED THE CHEST PAIN STARTED LAST NIGHT AND HAS YET TO RESOLVE ITSELF. PAIN RADIATED TO L SHOULDER/NECK AT FIRST, BUT NOW IS FELT ONLY IN HER MID-CHEST. PT ALSO C/O BILATERAL LEG NUMBESS THAT LASTED ABOUT 5 MIN, BUT HAS RESOLVED ITSELF. BREATH SOUNDS CLEAR BILATERALLY AND S1/S2 HEARD. PT BELIEVES CHEST PAIN FROM COVID VACCINE THAT SHE RECEIVED X1 MONTH AGO MEDHX: HTN, ANXIETY, HEART MURMUR ALLERGIES: DENIES
--- NOTE | 2021-06-22 08:19 | NUR ---
SAID BEDSIDE EVALUATING PT
--- NOTE | 2021-06-22 08:22 | NUR ---
PER ERMD 12 LEAD WAS DONE ON PT AND CAME BACK NSR AT 96 HR.
--- NOTE | 2021-06-22 08:32 | NUR ---
labor economics professor Harry bedside collecting bloodwork
--- NOTE | 2021-06-22 08:33 | NUR ---
PER SAID TO HOLD OFF ON GIVING TORADOL UNTIL SERUM BLOOD WORK COMES BACK
--- NOTE | 2021-06-22 08:56 | NUR ---
pt returned to bed 6 from xray via w/c
[2021-06-22 09:04] LABS: ALBUMIN 3.4 g/dL (3.4-5.0); CARBON DIOXIDE 25.9 mmol/L (21-32); CREATININE 0.8 mg/dL (0.6-1.3); POTASSIUM 3.9 mmol/L (3.5-5.1); TOTAL BILIRUBIN 0.2 mg/dL (0.0-1.0)
[2021-06-22] MEDS: KETOROLAC 15 MG/ML VIAL IM ONE (09:09)
--- NOTE | 2021-06-22 09:09 | NUR ---
pt provided with warm blanket and hob lowered to pt comfort
--- NOTE | 2021-06-22 09:45 | NUR ---
IV ESTABLISHED IN R AC - 20 GAUGE USED.
--- NOTE | 2021-06-22 09:51 | NUR ---
PT TAKEN TO CT VIA W/C
--- NOTE | 2021-06-22 10:04 | NUR ---
PT RETURNED TO BED [address] VIA W/C
[2021-06-22 10:39] LABS: BASOPHILS % (AUTO) 0.4 % (0.0-2.0); EOSINOPHILS # (AUTO) 0.1 K/uL (0-0.4); EOSINOPHILS % (AUTO) 1.5 % (0.0-4.0); HEMATOCRIT 34.5 % (36-48); HEMOGLOBIN 11.3 g/dL (12.0-16.0); LYMPHOCYTES # (AUTO) 1.9 K/uL (2.5-16.5); LYMPHOCYTES % (AUTO) 25.8 % (20.5-51.1); MEAN CORPUSCULAR HEMOGLOBIN 31 pg (27-31); MEAN CORPUSCULAR HGB CONC 33 g/dL (33-37); MEAN CORPUSCULAR VOLUME 93.8 fL (80-94); MONOCYTES # (AUTO) 0.4 K/uL (0.8-1.0); MONOCYTES % (AUTO) 4.8 % (1.7-9.3); NEUTROPHILS % (AUTO) 67.5 % (42.2-75.2); PLATELET COUNT (AUTO) 287 K/uL (140-450); RED BLOOD CELL COUNT(AUTO) 3.68 MIL/uL (4.20-5.40); RED CELL DISTRIBUTION WIDTH 13.5 % (11.6-13.7); WHITE BLOOD COUNT (AUTO) 7.5 K/uL (4.8-10.8)
[2021-06-22] MEDS ORDERED: LID5T TP (11:15)
[2021-06-22 11:35] VITALS: BP 137/78
--- NOTE | 2021-06-22 11:35 | NUR ---
Patient discharged with v/s stable. Written and verbal after care instructions given and explained. Patient alert, oriented and verbalized understanding of instructions. Ambulatory with steady gait. All questions addressed prior to discharge. ID band removed. Patient advised to follow up with PMD. Rx of lidocaine patch given. Patient educated on indication of medication including possible reaction and side effects. Opportunity to ask questions provided and answered.
== END 2021-06-22 11:35 | disposition home or self-care (01) ==
LOC: MED 08:01
DX: K80.20 Calculus of gallbladder without cholecystitis without obstruction (principal); R07.89 Other chest pain; I10 Essential (primary) hypertension; F41.9 Anxiety disorder, unspecified; E78.5 Hyperlipidemia, unspecified; Z98.890 Other specified postprocedural states; Z79.899 Other long term (current) drug therapy
CPT/HCPCS: 36415; 71045; 71275; 80053; 83880; 84484; 84703; 85025; 85379; 93005; 96372; 99285; J1885; Q9967

== ENCOUNTER 2021-09-27 09:37 | Emergency (ER) | payer OTHER ==
[~2021-09-27] VITALS: Ht 170.2 cm; Wt 113.4 kg
[~2021-09-27 09:37] MED LIST changes: +LID5T TP
[2021-09-27 10:39] VITALS: BP 128/59
--- NOTE | 2021-09-27 10:42 | NUR ---
TENT 2.
--- NOTE | 2021-09-27 10:50 | NUR ---
BIB FAMILY C/O COUGH X 1 WEEK AND C/O 610 HEADCACHE X YESTERDAY. PMH: ANXIETY, HEART MURMUR, HTN
[2021-09-27] MEDS ORDERED: KETOROLAC 60 MG/2 ML VIAL IM ONE (12:25)
[2021-09-27] MEDS ORDERED: IBUP-2213 PO (13:07)
[2021-09-27] MEDS ORDERED: PRED20TA5 PO (13:07)
--- NOTE | 2021-09-27 13:43 | NUR ---
DPatient discharged with v/s stable. Written and verbal after care instructions given and explained. Patient alert, oriented and verbalized understanding of instructions. Ambulatory with steady gait. All questions addressed prior to discharge. ID band removed. Patient advised to follow up with PMD. Rx of IBUPROFEN AND PREDNISONE given. Patient educated on indication of medication including possible reaction and side effects. Opportunity to ask questions provided and answered.
[2021-09-27 13:46] VITALS: BP 128/59
== END 2021-09-27 13:43 | disposition home or self-care (01) ==
LOC: MED 09:37
DX: R51.9 Headache, unspecified (principal); R06.02 Shortness of breath; I11.9 Hypertensive heart disease without heart failure; F17.210 Nicotine dependence, cigarettes, uncomplicated
CPT/HCPCS: 71045; 96372; 99283; J1885

== ENCOUNTER 2022-03-11 08:53 | Emergency (ER) | payer OTHER ==
[~2022-03-11] VITALS: Ht 172.7 cm; Wt 127.5 kg
[~2022-03-11 08:53] MED LIST changes: +PRED20TA5 PO
[2022-03-11 08:59] VITALS: BP 149/89
--- NOTE | 2022-03-11 09:07 | NUR ---
41 Y/O FEMALE C/O INTERMITTENT HEADACHE X4 DAYS, WORSENING TODAY, REPORTS TAKING TYLENOL WITH NO RELIEF. DENIES VISION CHANGES OR WEAKNESS. LUNG SOUNDS CTA. PT DENIES AGGREVATING OR ALLEVIATING FACTORS. PT DENIES FEVER OR CHILLS. PT DENIES CHEST PAIN, SOB. PMH: HTN, ANXIETY, HEART MURMUR NKDA
[2022-03-11] MEDS ORDERED: APAP/BUTAL/CAFF 325/50/40 MG 1 TAB PO ONE (09:55)
[2022-03-11] MEDS ORDERED: KETOROLAC 30 MG/ML VIAL IM ONE (09:55)
[2022-03-11] MEDS ORDERED: ACET-9234 PO (11:03)
[2022-03-11] MEDS ORDERED: IBUP-2213 PO (11:03)
[2022-03-11 11:21] VITALS: BP 134/78
--- NOTE | 2022-03-11 11:25 | NUR ---
Patient discharged with v/s stable. Written and verbal after care instructions given and explained. Patient alert, oriented and verbalized understanding of instructions. Ambulatory with steady gait. All questions addressed prior to discharge. ID band removed. Patient advised to follow up with PMD. Rx of FIORICET, IBUPROFEN given. Patient educated on indication of medication including possible reaction and side effects. Opportunity to ask questions provided and answered.
== END 2022-03-11 11:25 | disposition home or self-care (01) ==
LOC: MED 08:53
DX: G44.209 Tension-type headache, unspecified, not intractable (principal); I10 Essential (primary) hypertension; I25.10 Atherosclerotic heart disease of native coronary artery without angina pectoris; Z98.51 Tubal ligation status
CPT/HCPCS: 96372; 99283; J1885

== ENCOUNTER 2022-06-08 08:26 | Emergency (ER) | payer OTHER ==
[~2022-06-08] VITALS: Ht 170.2 cm; Wt 80.3 kg
[~2022-06-08 08:26] MED LIST changes: +ACET-9234 PO
[2022-06-08 08:29] VITALS: BP 173/106
--- NOTE | 2022-06-08 08:37 | NUR ---
PT AMB TO BED 12.
--- NOTE | 2022-06-08 08:54 | NUR ---
DR GUPTA AT BEDSIDE EVALUATING PT
[2022-06-08] MEDS ORDERED: METOCLOPRAMIDE 10 MG TAB PO ONE (09:00)
[2022-06-08] MEDS ORDERED: FAMOTIDINE 20 MG TAB PO ONE (09:00)
[2022-06-08] MEDS ORDERED: ALUMINUM HYD/MAG/SIMETHICONE 30 ML UDC PO ONE (09:00)
[2022-06-08 09:28] LABS: BASOPHILS % (AUTO) 0.6 % (0.0-2.0); EOSINOPHILS # (AUTO) 0.1 K/uL (0-0.4); HEMATOCRIT 32.7 % (36-48); HEMOGLOBIN 10.8 g/dL (12.0-16.0); LYMPHOCYTES # (AUTO) 2.1 K/uL (2.5-16.5); LYMPHOCYTES % (AUTO) 33.8 % (20.5-51.1); MEAN CORPUSCULAR HEMOGLOBIN 30 pg (27-31); MEAN CORPUSCULAR HGB CONC 33 g/dL (33-37); MEAN CORPUSCULAR VOLUME 89.7 fL (80-94); MONOCYTES # (AUTO) 0.3 K/uL (0.8-1.0); MONOCYTES % (AUTO) 4.6 % (1.7-9.3); NEUTROPHILS # (AUTO) 3.6 K/uL (1.8-7.7); PLATELET COUNT (AUTO) 312 K/uL (140-450); RED BLOOD CELL COUNT(AUTO) 3.65 MIL/uL (4.20-5.40); RED CELL DISTRIBUTION WIDTH 13.9 % (11.6-13.7); WHITE BLOOD COUNT (AUTO) 6.2 K/uL (4.8-10.8)
--- NOTE | 2022-06-08 09:36 | NUR ---
PT CO SUBSTERNAL BURNING PAIN X1 MONTH, WORSE AFTER EATING. NSR ON MONITOR. MEDICATED PER ORDER. NAD. SAFETY MAINTAINED.
[2022-06-08 10:12] LABS: ALBUMIN 3.1 g/dL (3.4-5.0); ANION GAP 13.1 (8-16); CARBON DIOXIDE 24.9 mmol/L (21-32); CHLORIDE 105 mmol/L (98-107); CREATININE 0.6 mg/dL (0.6-1.3); GFR ARICAN-AMERICAN 141 mL/min (>90); GLUCOSE 97 mg/dL (74-106); SODIUM SERUM 139 mmol/L (136-145); TOTAL BILIRUBIN 0.3 mg/dL (0.0-1.0); UREA NITROGEN, BLOOD 8 mg/dL (7-18)
[2022-06-08] MEDS ORDERED: SUCR1TAB35 PO (10:59)
[2022-06-08 11:09] VITALS: BP 122/70
--- NOTE | 2022-06-08 11:09 | NUR ---
Patient discharged with v/s stable. Written and verbal after care instructions given and explained. Patient alert, oriented and verbalized understanding of instructions. Ambulatory with steady gait. All questions addressed prior to discharge. ID band removed. Patient advised to follow up with PMD. Rx of CARAFATE given. Patient educated on indication of medication including possible reaction and side effects. Opportunity to ask questions provided and answered.
== END 2022-06-08 11:09 | disposition home or self-care (01) ==
LOC: MED 08:26
DX: R07.89 Other chest pain (principal); R10.13 Epigastric pain; K21.9 Gastro-esophageal reflux disease without esophagitis; I10 Essential (primary) hypertension; Z79.899 Other long term (current) drug therapy
CPT/HCPCS: 36415; 71045; 80053; 81002; 81025; 84484; 85025; 93005; 99285; J8597

== ENCOUNTER 2022-08-28 07:39 | Emergency (ER) | payer OTHER ==
[~2022-08-28] VITALS: Ht 172.7 cm; Wt 125.6 kg
[~2022-08-28 07:39] MED LIST changes: +SUCR1TAB35 PO
[2022-08-28 07:45] VITALS: BP 167/107
--- NOTE | 2022-08-28 07:49 | NUR ---
PT AMBULATED TO BED 2
--- NOTE | 2022-08-28 08:00 | NUR ---
41F presents to ED with c/o lower ABD and low back pain [id number]. Pt reports an intermittent cramping like, 7/10 pain across lower abd to lower back, and increased urinary frequency. Pt reports seeing her PCP a week ago and denies any medical exams were done. Pt denies N/V/D, fevers, chills, or painful urination. Pt reports taking tylenol and motrin for pain with mild relief, denies taking meds today.
--- NOTE | 2022-08-28 08:20 | NUR ---
Lab at bedside.
--- NOTE | 2022-08-28 08:28 | NUR ---
Ultrasound at bedside.
[2022-08-28 08:29] LABS: BASOPHILS % (AUTO) 0.6 % (0.0-2.0); EOSINOPHILS # (AUTO) 0.1 K/uL (0-0.4); EOSINOPHILS % (AUTO) 1.6 % (0.0-4.0); HEMATOCRIT 32.9 % (36-48); HEMOGLOBIN 10.7 g/dL (12.0-16.0); LYMPHOCYTES # (AUTO) 2.1 K/uL (2.5-16.5); LYMPHOCYTES % (AUTO) 32.6 % (20.5-51.1); MEAN CORPUSCULAR HEMOGLOBIN 29 pg (27-31); MEAN CORPUSCULAR HGB CONC 33 g/dL (33-37); MEAN CORPUSCULAR VOLUME 90.7 fL (80-94); MONOCYTES # (AUTO) 0.4 K/uL (0.8-1.0); MONOCYTES % (AUTO) 5.5 % (1.7-9.3); NEUTROPHILS # (AUTO) 3.8 K/uL (1.8-7.7); NEUTROPHILS % (AUTO) 59.7 % (42.2-75.2); PLATELET COUNT (AUTO) 272 K/uL (140-450); RED BLOOD CELL COUNT(AUTO) 3.63 MIL/uL (4.20-5.40); RED CELL DISTRIBUTION WIDTH 14.5 % (11.6-13.7); WHITE BLOOD COUNT (AUTO) 6.4 K/uL (4.8-10.8)
[2022-08-28 08:31] LABS: APPEARANCE,URINE CLEAR (CLEAR); BILIRUBIN,URINE NEGATIVE (NEGATIVE); BLOOD, URINE TRACE-L (NEGATIVE); COLOR,URINE YELLOW (YELLOW); LEUKOCYTE ESTERASE ,URINE TRACE (NEGATIVE); NITRITE, URINE NEGATIVE (NEGATIVE); UGLUCOSE NEGATIVE (NEGATIVE)
[2022-08-28 08:46] LABS: OTHER CASTS, URINE None Seen /LPF (None Seen)
[2022-08-28 08:49] LABS: ALBUMIN 2.9 g/dL (3.4-5.0); ANION GAP 8.1 (8-16); CARBON DIOXIDE 28.8 mmol/L (21-32); CREATININE 0.7 mg/dL (0.6-1.3); POTASSIUM 3.9 mmol/L (3.5-5.1); TOTAL BILIRUBIN 0.3 mg/dL (0.0-1.0)
[2022-08-28] MEDS ORDERED: cefTRIAXone 1,000 MG in LIDOCAINE MPF 1% 2.1 ML IM ONE (09:30)
[2022-08-28] MEDS ORDERED: CEPH-588 PO (09:32)
[2022-08-28] MEDS ORDERED: cefTRIAXone 1,000 MG VIAL ONE (09:35)
[2022-08-28] MEDS ORDERED: LIDOCAINE MPF 1% 5 ML ONE (09:35)
== END 2022-08-28 09:45 | disposition home or self-care (01) ==
LOC: MED 07:39
DX: N39.0 Urinary tract infection, site not specified (principal); N88.8 Other specified noninflammatory disorders of cervix uteri; I25.10 Atherosclerotic heart disease of native coronary artery without angina pectoris; K21.9 Gastro-esophageal reflux disease without esophagitis; I10 Essential (primary) hypertension; Z79.899 Other long term (current) drug therapy
CPT/HCPCS: 36415; 76856; 80053; 81001; 81025; 83690; 85025; 87086; 96372; 99284; J0696; J2001

== ENCOUNTER 2023-07-14 18:53 | Emergency (ER) | payer OTHER ==
[~2023-07-14] VITALS: Ht 165.1 cm; Wt 129.3 kg
[~2023-07-14 18:53] MED LIST changes: +CEPH-588 PO
[2023-07-14 19:09] VITALS: BP 149/95; PULSE 89; RESP 16; TEMP 97; O2SAT 99
[2023-07-14] MEDS ORDERED: KETOROLAC 30 MG/ML VIAL IM ONE (20:15)
[2023-07-14] MEDS ORDERED: DEXAMETHASONE 10 MG/ML VIAL IM ONE (20:15)
== END 2023-07-14 20:28 | disposition home or self-care (01) ==
LOC: MED 18:53
DX: R51.9 Headache, unspecified (principal); K21.9 Gastro-esophageal reflux disease without esophagitis; I11.9 Hypertensive heart disease without heart failure; Z79.899 Other long term (current) drug therapy
CPT/HCPCS: 81025; 96372; 99284; J1100; J1885

== ENCOUNTER 2023-10-09 23:30 | Emergency (ER) | payer OTHER ==
[~2023-10-09] VITALS: Ht 170.2 cm; Wt 129.3 kg
[2023-10-09 23:40] VITALS: BP 126/90; PULSE 89; RESP 18; TEMP 98.3; O2SAT 100
[2023-10-10 03:59] LABS: BASOPHILS # (AUTO) 0.1 K/uL (0.00-0.22); BASOPHILS % (AUTO) 0.7 % (0.0-2.0); EOSINOPHILS # (AUTO) 0.1 K/uL (0-0.4); EOSINOPHILS % (AUTO) 1.5 % (0.0-4.0); HEMOGLOBIN 10.8 g/dL (12.0-16.0); LYMPHOCYTES # (AUTO) 3.1 K/uL (2.5-16.5); LYMPHOCYTES % (AUTO) 35.7 % (20.5-51.1); MEAN CORPUSCULAR HEMOGLOBIN 29 pg (27-31); MEAN CORPUSCULAR HGB CONC 34 g/dL (33-37); MEAN CORPUSCULAR VOLUME 87.3 fL (80-94); MONOCYTES # (AUTO) 0.5 K/uL (0.8-1.0); MONOCYTES % (AUTO) 5.2 % (1.7-9.3); NEUTROPHILS % (AUTO) 56.9 % (42.2-75.2); PLATELET COUNT (AUTO) 342 K/uL (140-450); RED BLOOD CELL COUNT(AUTO) 3.66 MIL/uL (4.20-5.40); WHITE BLOOD COUNT (AUTO) 8.8 K/uL (4.8-10.8)
[2023-10-10 04:12] LABS: ANION GAP 9.5 (8-16); CALCIUM 8.7 mg/dL (8.5-10.1); CARBON DIOXIDE 26.5 mmol/L (21-32); CREATININE 0.7 mg/dL (0.6-1.3)
[2023-10-10 04:16] LABS: INR 0.97 (0.8-1.2); PROTHROMBIN TIME 10.2 secs (10.8-13.4)
[2023-10-10] MEDS ORDERED: ALUMINUM HYD/MAG/SIMETHICONE 30 ML UDC PO ONE (06:40)
[2023-10-10] MEDS ORDERED: OMEP40EC23 PO ×2 (07:24→07:49)
[2023-10-10] MEDS ORDERED: SUCR1TAB35 PO ×2 (07:24→07:49)
[2023-10-10 07:50] VITALS: O2SAT 100
== END 2023-10-10 07:41 | disposition home or self-care (01) ==
LOC: MED 23:30
DX: R07.89 Other chest pain (principal); I10 Essential (primary) hypertension; K21.9 Gastro-esophageal reflux disease without esophagitis; F17.200 Nicotine dependence, unspecified, uncomplicated; Z71.6 Tobacco abuse counseling; Z79.899 Other long term (current) drug therapy; Z79.2 Long term (current) use of antibiotics; Z79.1 Long term (current) use of non-steroidal anti-inflammatories (NSAID)
CPT/HCPCS: 36415; 71045; 80048; 81025; 83880; 84484; 85025; 85610; 85730; 93005; 99285

== ENCOUNTER 2023-10-17 14:29 | Emergency (ER) | payer OTHER ==
[~2023-10-17] VITALS: Ht 170.2 cm; Wt 127.0 kg
[~2023-10-17 14:29] MED LIST changes: +OMEP40EC23 PO
[2023-10-17 14:39] VITALS: BP 151/102; PULSE 98; RESP 18; TEMP 98; O2SAT 100
[2023-10-17] MEDS ORDERED: DICYCLOMINE HCL LIQUID 10 MG/5 ML UDC ONE (15:43)
[2023-10-17] MEDS ORDERED: ALUMINUM HYD/MAG/SIMETHICONE 30 ML UDC ONE (15:43)
[2023-10-17 15:45] LABS: BASOPHILS % (AUTO) 0.5 % (0.0-2.0); EOSINOPHILS # (AUTO) 0.1 K/uL (0-0.4); EOSINOPHILS % (AUTO) 1.4 % (0.0-4.0); HEMATOCRIT 30.1 % (36-48); HEMOGLOBIN 10.1 g/dL (12.0-16.0); LYMPHOCYTES # (AUTO) 2.1 K/uL (2.5-16.5); MEAN CORPUSCULAR HEMOGLOBIN 30 pg (27-31); MEAN CORPUSCULAR HGB CONC 34 g/dL (33-37); MEAN CORPUSCULAR VOLUME 87.7 fL (80-94); MONOCYTES # (AUTO) 0.4 K/uL (0.8-1.0); MONOCYTES % (AUTO) 5.7 % (1.7-9.3); NEUTROPHILS # (AUTO) 5.1 K/uL (1.8-7.7); NEUTROPHILS % (AUTO) 65.4 % (42.2-75.2); PLATELET COUNT (AUTO) 308 K/uL (140-450); RED BLOOD CELL COUNT(AUTO) 3.43 MIL/uL (4.20-5.40); RED CELL DISTRIBUTION WIDTH 14.8 % (11.6-13.7); WHITE BLOOD COUNT (AUTO) 7.8 K/uL (4.8-10.8)
[2023-10-17] MEDS: DICYCLOMINE HCL LIQUID 20 MG, ALUMINUM HYD/MAG/SIMETHICONE 30 ML, LIDOCAINE VISCOUS 2% ... PO ONE (15:47)
[2023-10-17 15:54] LABS: ANION GAP 12.5 (8-16); CALCIUM 8.2 mg/dL (8.5-10.1); CARBON DIOXIDE 27.2 mmol/L (21-32); CREATININE 0.7 mg/dL (0.6-1.3); POTASSIUM 3.7 mmol/L (3.5-5.1)
[2023-10-17] MEDS ORDERED: ACET-10509 PO (16:54)
[2023-10-17] MEDS ORDERED: CYCL-711 PO (16:54)
[2023-10-17 17:00] VITALS: BP 155/90; PULSE 85; RESP 15; TEMP 98; O2SAT 99
[2023-10-17] MEDS: KETOROLAC 30 MG/ML VIAL IM ONE (17:05)
== END 2023-10-17 17:10 | disposition home or self-care (01) ==
LOC: MED 14:29
DX: K29.70 Gastritis, unspecified, without bleeding (principal); D64.9 Anemia, unspecified; R07.89 Other chest pain; I11.9 Hypertensive heart disease without heart failure; K21.9 Gastro-esophageal reflux disease without esophagitis; Z79.899 Other long term (current) drug therapy
CPT/HCPCS: 36415; 71045; 80048; 81025; 84484; 85025; 93005; 96372; 99285; J1885

== ENCOUNTER 2024-04-28 20:33 | Emergency (ER) | payer MEDICAID, OTHER ==
[~2024-04-28] VITALS: Ht 170.2 cm; Wt 113.4 kg
[~2024-04-28 20:33] MED LIST changes: +ACET500T99 PO; +CYCL-711 PO; +SUCR-3 PO; -SUCR1TAB35 PO
[2024-04-28 20:40] VITALS: BP 167/102; PULSE 96; RESP 14; TEMP 97.6; O2SAT 100
[2024-04-28 21:11] LABS: BASOPHILS % (AUTO) 0.6 % (0.0-2.0); EOSINOPHILS # (AUTO) 0.1 K/uL (0-0.4); EOSINOPHILS % (AUTO) 1.6 % (0.0-4.0); HEMATOCRIT 32.2 % (36-48); HEMOGLOBIN 10.7 g/dL (12.0-16.0); LYMPHOCYTES % (AUTO) 38.7 % (20.5-51.1); MEAN CORPUSCULAR HEMOGLOBIN 30 pg (27-31); MEAN CORPUSCULAR HGB CONC 33 g/dL (33-37); MEAN CORPUSCULAR VOLUME 89.5 fL (80-94); MONOCYTES # (AUTO) 0.4 K/uL (0.8-1.0); MONOCYTES % (AUTO) 5.1 % (1.7-9.3); NEUTROPHILS # (AUTO) 4.1 K/uL (1.8-7.7); PLATELET COUNT (AUTO) 299 K/uL (140-450); RED CELL DISTRIBUTION WIDTH 15.1 % (11.6-13.7); WHITE BLOOD COUNT (AUTO) 7.7 K/uL (4.8-10.8)
[2024-04-28 21:19] LABS: ANION GAP 10.7 (8-16); CALCIUM 8.7 mg/dL (8.5-10.1); CARBON DIOXIDE 27.8 mmol/L (21-32); CREATININE 0.7 mg/dL (0.6-1.3); POTASSIUM 3.5 mmol/L (3.5-5.1)
[2024-04-28] MEDS: PROCHLORPERAZINE 10 MG/2 ML VIAL IM ONE (21:35)
[2024-04-28 22:42] VITALS: BP 158/98; PULSE 92; RESP 16; TEMP 98; O2SAT 100
[2024-04-28] MEDS ORDERED: METO-485 PO (23:11)
[2024-04-28] MEDS ORDERED: NAPR-337 PO (23:11)
== END 2024-04-28 23:14 | disposition home or self-care (01) ==
LOC: MED 20:33
DX: G43.909 Migraine, unspecified, not intractable, without status migrainosus (principal); K21.9 Gastro-esophageal reflux disease without esophagitis; I10 Essential (primary) hypertension; Z79.899 Other long term (current) drug therapy
CPT/HCPCS: 36415; 70450; 80048; 81025; 84484; 85025; 93005; 96372; 99285; J0780

== ENCOUNTER 2024-05-13 22:51 | Emergency (ER) | payer MEDICAID ==
[~2024-05-13] VITALS: Ht 170.2 cm; Wt 118.4 kg
[~2024-05-13 22:51] MED LIST changes: +METO-485 PO; +NAPR-337 PO
[2024-05-13 22:55] VITALS: BP 166/102; PULSE 95; RESP 18; TEMP 98.2; O2SAT 98
--- NOTE | 2024-05-13 23:01 | NUR ---
urine sample @ specimen tray, ambulated to lobby after triage
[2024-05-13 23:32] VITALS: BP 166/102; PULSE 95; RESP 18; TEMP 98.2; O2SAT 98
--- NOTE | 2024-05-13 23:32 | NUR ---
43YR OLD FEMALE AOX4 BIB SELF C/O BODYACHES THAT STARTED X2HRS PRIOR TO ARRIVAL. PT STATES "I HURT ALL OVER." 8/10 PAIN. DENIES ANY FEVRS, CHILLS, CHEST PAIN. PT ENDORSES SHE IS A SMOKER AND FINISHES 1PACK IN 3 DAYS. PT ON BEDSIDE MONITOR, CALL LIGHT WITHIN REACH. FAMILY AT BEDSIDE. NKDA HTN ANXIETY
--- NOTE | 2024-05-13 23:39 | NUR ---
MILANA NARVAEZ EXAMINING PT.
[2024-05-13] MEDS ORDERED: ATA25 PO (23:55)
[2024-05-14] MEDS: HYDROXYZINE HYDROCHLORIDE 25 MG TAB PO ONE (00:15)
== END 2024-05-14 00:18 | disposition home or self-care (01) ==
LOC: MED 22:51
DX: R20.2 Paresthesia of skin (principal); K21.9 Gastro-esophageal reflux disease without esophagitis; F41.9 Anxiety disorder, unspecified; I10 Essential (primary) hypertension; Z79.899 Other long term (current) drug therapy
CPT/HCPCS: 99283

== ENCOUNTER 2024-05-18 22:04 | Emergency (ER) | payer MEDICAID ==
[~2024-05-18] VITALS: Ht 170.2 cm; Wt 129.3 kg
[~2024-05-18 22:04] MED LIST changes: +ATA25 PO
[2024-05-18 22:15] VITALS: BP 136/93; PULSE 106; RESP 18; TEMP 97.5; O2SAT 99
[2024-05-18 22:26] VITALS: O2SAT 99
[2024-05-18 23:22] LABS: BASOPHILS % (AUTO) 0.5 % (0.0-2.0); EOSINOPHILS # (AUTO) 0.1 K/uL (0-0.4); EOSINOPHILS % (AUTO) 1.6 % (0.0-4.0); HEMATOCRIT 32.7 % (36-48); HEMOGLOBIN 10.8 g/dL (12.0-16.0); LYMPHOCYTES # (AUTO) 2.8 K/uL (2.5-16.5); MEAN CORPUSCULAR HEMOGLOBIN 30 pg (27-31); MEAN CORPUSCULAR HGB CONC 33 g/dL (33-37); MEAN CORPUSCULAR VOLUME 90.4 fL (80-94); MONOCYTES # (AUTO) 0.5 K/uL (0.8-1.0); MONOCYTES % (AUTO) 6.2 % (1.7-9.3); NEUTROPHILS # (AUTO) 5.1 K/uL (1.8-7.7); NEUTROPHILS % (AUTO) 59.7 % (42.2-75.2); PLATELET COUNT (AUTO) 290 K/uL (140-450); RED BLOOD CELL COUNT(AUTO) 3.62 MIL/uL (4.20-5.40); RED CELL DISTRIBUTION WIDTH 14.2 % (11.6-13.7); WHITE BLOOD COUNT (AUTO) 8.6 K/uL (4.8-10.8)
[2024-05-18 23:32] LABS: ANION GAP 11.8 (8-16); CALCIUM 8.6 mg/dL (8.5-10.1); CARBON DIOXIDE 25.6 mmol/L (21-32); CREATININE 0.9 mg/dL (0.6-1.3); POTASSIUM 3.4 mmol/L (3.5-5.1)
== END 2024-05-18 23:45 | disposition home or self-care (01) ==
LOC: MED 22:04
DX: R20.2 Paresthesia of skin (principal); I10 Essential (primary) hypertension; F41.9 Anxiety disorder, unspecified; Z79.899 Other long term (current) drug therapy; Z79.1 Long term (current) use of non-steroidal anti-inflammatories (NSAID)
CPT/HCPCS: 36415; 80048; 85025; 99283